=== PATIENT | male | born 1970 | race Caucasian/White ===

== ENCOUNTER 2016-09-06 10:37 | Emergency (ER) | payer SELFPAY ==
[2016-09-06 11:38] LABS: HEMOGLOBIN 13.9 gm/dl (14.0-17.5); RED BLOOD COUNT 4.65 M/UL (4.20-5.50); WHITE BLOOD COUNT 12.8 K/UL (4.5-11.0)
== END 2016-09-06 13:32 | disposition home or self-care (01) ==
LOC: ER1 10:37
PROVIDERS: Specialist/Technologist Athletic Trainer
DX: N20.0 Calculus of kidney (principal); I25.10 Atherosclerotic heart disease of native coronary artery without angina pectoris; I11.9 Hypertensive heart disease without heart failure; F17.210 Nicotine dependence, cigarettes, uncomplicated; Z95.5 Presence of coronary angioplasty implant and graft; Z88.5 Allergy status to narcotic agent; Z79.899 Other long term (current) drug therapy
CPT/HCPCS: 36415; 80053; 81001; 83690; 85025; 96374; 96375; 99284; J1100; J2270; J2405

== ENCOUNTER → 2020-05-28 | Outpatient (CLI) | payer MEDICARE, OTHER ==
[~2020-05-28] MED LIST: ALDACTONE25 MG PO; ASPIR-LOW81 MG PO; BRILINTA 90 MG90 MG PO; BUTALB-ACETAMI1 EAC1 PO; CELEXA10 MG PO; COREG 12.5MG12.5 MG PO; COZAAR50 MG PO; DIGOXIN PO; DIGOXIN125 MCG PO; ENTRESTO 24 MG1 EACH PO; FIORICET TAB1 EA PO; GLUCOPHAGE500 MG PO; LANOXIN TAB0.125 MG PO; LASIX TAB 20 MG20 MG PO; LEVAQUIN500 MG PO; LIPITOR TAB 2020 MG PO; LORTAB 7.5-3251 EACH PO; METOPROLOL TAR100 MG PO; NORCO 7.5-3251 EACH PO; PLAVIX 75 MG TA75 MG PO; PROCARDIA XL30 MG PO; TOPROL XL50 MG PO; TRICOR145 MG PO; ZETIA 10 MG TAB10 MG PO
[2020-06-05 00:09] LABS: METANEPHRINE, PL 10.3 pg/mL (0.0-88.0); NORMETANEPHRINE, PL 59.2 pg/mL (0.0-125.8)
== END ==
LOC: LAB 13:27
PROVIDERS: Nurse Practitioner Family
DX: I10 Essential (primary) hypertension (principal)
CPT/HCPCS: 36415; 82384; 83835

== ENCOUNTER → 2020-08-13 | Outpatient (CLI) | payer MEDICARE, OTHER | LOC: RAD 13:05 | DX: M77.10 Lateral epicondylitis, unspecified elbow (principal) | CPT/HCPCS: 73080 ==

== ENCOUNTER → 2020-11-09 | Outpatient (CLI) | payer MEDICARE, OTHER ==
[2020-11-09 11:44] LABS: HEMOGLOBIN 14.7 gm/dl (14.0-17.5); RED BLOOD COUNT 4.74 M/UL (4.20-5.50); WHITE BLOOD COUNT 8.5 K/UL (4.5-11.0)
[2020-11-09 12:56] LABS: BUN/CREATININE RATIO 11 (0-10)
[2020-11-10 09:13] LABS: CREATININE, URINE 246.2 mg/dL (Not Estab.)
== END ==
LOC: LAB 10:54
PROVIDERS: Nurse Practitioner Family
DX: E11.9 Type 2 diabetes mellitus without complications (principal); E78.5 Hyperlipidemia, unspecified; R35.1 Nocturia
CPT/HCPCS: 36415; 80053; 80061; 82043; 82570; 84153; 85025

== ENCOUNTER → 2021-04-28 | Outpatient (CLI) | payer OTHER | LOC: EXRD 09:26 | DX: R10.13 Epigastric pain (principal); R93.2 Abnormal findings on diagnostic imaging of liver and biliary tract | CPT/HCPCS: 76700 ==

== ENCOUNTER → 2022-01-07 | Outpatient (CLI) | payer MEDICARE, OTHER ==
[2022-01-07 10:27] LABS: HEMOGLOBIN 14.3 gm/dl (14.0-17.5); RED BLOOD COUNT 4.66 M/UL (4.20-5.50); WHITE BLOOD COUNT 8.4 K/UL (4.5-11.0)
[2022-01-09 16:23] LABS: BUN/CREATININE RATIO 17 (0-10)
[2022-01-10 13:01] LABS: CHOLESTEROL, TOTAL 92 mg/dL (100-199); HDL CHOLESTEROL 36 mg/dL (>39); LDL CHOLESTEROL CALC 38 mg/dL (0-99); LDL/HDL RATIO 1.1 ratio (0.0-3.6); T. CHOL/HDL RATIO 2.6 ratio (0.0-5.0); TRIGLYCERIDES 89 mg/dL (0-149)
[2022-01-11 04:11] LABS: PROSTATE-SPECIFIC AG 0.3 ng/mL (0.0-4.0)
== END ==
LOC: LAB 09:54
PROVIDERS: Nurse Practitioner Family
DX: E11.9 Type 2 diabetes mellitus without complications (principal); E78.5 Hyperlipidemia, unspecified; F41.9 Anxiety disorder, unspecified; N52.9 Male erectile dysfunction, unspecified; E55.9 Vitamin D deficiency, unspecified
CPT/HCPCS: 80053; 80061; 82043; 82570; 84153; 84439; 84443; 85025